=== PATIENT | female | born 1995 | race African-American/Black ===

== ENCOUNTER 2022-09-04 00:42 | Emergency (ER) | payer BC ==
[2022-09-04 00:56] VITALS: BP 142/84; PULSE 73; RESP 20; TEMP 97.8; BMI 34.1
[2022-09-04] MEDS ORDERED: ACETAMINOPHEN 500 MG TABLET (FP) PO ONE (01:40)
[2022-09-04] MEDS ORDERED: ACETAMINOPHEN 500 MG TABLET (FP) ONE (01:52)
[2022-09-04 02:10] LABS: BASO % 1.6 % (0-2.0); EOS % 3.2 % (0-4.5); HEMATOCRIT 32.5 % (32.4-45.2); LYMPH % 44.9 % (8-40); MCHC 30.7 g/dl (32.0-36.0); MEAN CELL VOLUME 64.3 fl (80-96); MEAN PLT VOLUME 10.1 fl (7.5-11.1); MONO % 8.9 % (3.8-10.2); NEUT % 41.4 % (42.8-82.8); PLATELET COUNT 295 10^3/uL (134-434); RBC 5.06 M/mm3 (3.60-5.2); RDW 17.3 % (11.6-15.6); WHITE BLOOD COUNT 5.7 K/mm3 (4.0-10.0)
[2022-09-04 02:11] LABS: PH,URINE 6.5 (5.0-8.0); URINE APPEARANCE CLEAR; URINE BILIRUBIN NEGATIVE (NEGATIVE); URINE COLOR YELLOW; URINE GLUCOSE (UA) NEGATIVE (NEGATIVE); URINE KETONE NEGATIVE (NEGATIVE); URINE LEUK ESTERASE NEGATIVE (NEGATIVE); URINE NITRITE NEGATIVE (NEGATIVE); URINE PROTEIN NEGATIVE (NEGATIVE)
[2022-09-04 02:13] LABS: MCH 19.7 pg (25.7-33.7)
[2022-09-04 02:15] LABS: HCG,QUALITATIVE URINE Negative
[2022-09-04 02:38] LABS: ALBUMIN 3.8 g/dl (3.4-5.0); BLOOD UREA NITROGEN 16.6 mg/dL (7-18)
[2022-09-04 02:41] LABS: CREATININE 0.9 mg/dL (0.55-1.3)
[2022-09-04 02:42] LABS: BILIRUBIN,TOTAL 0.3 mg/dL (0.2-1); TOT PROT 7.3 g/dl (6.4-8.2)
[2022-09-04 07:39] LABS: ANISOCYTOSIS 2+; MACROCYTOSIS 0; OVALOCYTE 2+; TEAR DROP CELLS 2+
== END 2022-09-04 03:09 | disposition home or self-care (01) ==
LOC: JER 00:42
DX: R41.840 Attention and concentration deficit (principal); E03.9 Hypothyroidism, unspecified
CPT/HCPCS: 36415; 80053; 81003; 84439; 84443; 84703; 85025; 99284-25